=== PATIENT | male | born 1965 | race Caucasian/White ===

== ENCOUNTER 2024-07-22 12:14 | Inpatient (IN) | payer MEDICARE ==
[2024-07-22] MEDS: Metolazone 5 MG Tab PO ONE (13:05)
[2024-07-22 13:24] LABS: BASOPHILS ABSOLUTE AUTO 0.09 K/uL (0.02-0.10); BASOPHILS PERCENT AUTO 1.3 % (0.0-0.5); EOSINOPHILS ABSOLUTE AUTO 0.07 K/uL (0.04-0.40); HEMATOCRIT 40.5 % (40.0-54.0); HEMOGLOBIN 13.5 g/dL (13.0-18.0); LYMPHOCYTES ABSOLUTE AUTO 0.97 K/uL (1.50-4.00); LYMPHOCYTES PERCENT AUTO 13.9 % (20.0-40.0); MEAN CORPUSCULAR HEMOGLOBIN 27.3 pg (27.0-32.0); MEAN CORPUSCULAR HGB CONC 33.3 g/dL (31.0-35.0); MEAN CORPUSCULAR VOLUME 82 fL (76-96); MONOCYTES PERCENT AUTO 7.2 % (3.0-10.0); NEUTROPHILS ABSOLUTE AUTO 5.34 K/uL (2.00-7.50); NEUTROPHILS PERCENT AUTO 76.6 % (45.0-70.0); PLATELET COUNT,PLT 218 K/uL (150-400); RED BLOOD CELL COUNT 4.94 M/uL (4.50-6.50); RED CELL DISTRIBUTION WIDTH 15.8 % (11.0-16.0)
[2024-07-22 13:47] LABS: ALBUMIN 2.6 g/dL (3.4-5.0); BLOOD UREA NITROGEN,BUN 25 mg/dL (8-26); SODIUM,NA 134 mmol/L (136-145)
[2024-07-22 13:48] LABS: ALANINE AMINOTRANSFERASE,ALT 32 U/L (12-78); BILIRUBIN TOTAL 1.3 mg/dL (0.0-1.0)
[2024-07-22 14:12] LABS: A/G RATIO 0.6 (0.8-2.0); ALKALINE PHOSPHATASE 444 U/L (46-116); ANION GAP 9.6 mmol/L (5.0-15.0); ASPARTATE AMNIOTRANSFERASE,AST 25 U/L (15-37); BUN/CREATININE RATIO 22.7 (6-25); CALCIUM 8.9 mg/dL (8.5-10.1); CARBON DIOXIDE,CO2 30.4 mmol/L (21.0-32.0); CHLORIDE,CL 98 mmol/L (98-107); ESTIMATED GFR 77 mL/min (>60); GLUCOSE RANDOM 376 mg/dL (74-100); LIPASE 40 U/L (16-77); PROTEIN TOTAL,TP 7.3 g/dL (6.4-8.2)
[2024-07-22] MEDS ORDERED: Insulin Regular in 0.9 % NACL 100 ML IV SCH (14:13)
[2024-07-22 14:14] LABS: ETHANOL BLOOD MEDICAL < 3.0 mg/dL (<3.0)
[2024-07-22] MEDS: Sodium Chloride 0.9% 1,000 ML IV SCH ×2 (15:00→22:16)
[2024-07-22 16:45] LABS: INFLUENZA A NAA NEGATIVE (NEGATIVE); INFLUENZA B NAA NEGATIVE (NEGATIVE)
[2024-07-22 16:47] LABS: CORONAVIRUS COVID-19 NAA NEGATIVE (NEGATIVE)
[2024-07-22] MEDS: Glucagon,Human Recombinant 1 MG Vial IV ONE (18:53)
[2024-07-22] MEDS: 50% Dextrose in Water 50 ML Syringe IVPUSH ONE (18:56)
[2024-07-22] MEDS: Dextrose 5% in Water 1,000 ML IV SCH (19:30)
[2024-07-22] MEDS: Glucagon,Human Recombinant 1 MG Vial ONE ×2 (22:16)
[2024-07-23] MEDS ORDERED: 50% Dextrose in Water 50 ML Syringe IVPUSH PRN ×2 (00:37→08:45)
[2024-07-23] MEDS ORDERED: Glucagon,Human Recombinant 1 MG Vial IM PRN ×2 (00:37→08:45)
[2024-07-23] MEDS: Insulin Lispro 100 Unit/ML 3 ML KwikPen SUBCUT ONE ×2 (00:51→09:03)
[2024-07-23] MEDS: Sodium Chloride 0.9% 1,000 ML IV SCH (01:58)
[2024-07-23] MEDS: Metolazone 5 MG Tab PO ONE ×2 (04:06→10:31)
[2024-07-23] MEDS: Furosemide 40 MG Tab PO ONE (04:41)
[2024-07-23] MEDS: Ibuprofen 600 MG Tab PO PRN (05:22)
[2024-07-23] MEDS: metFORMIN 1,000 MG Tab PO SCH (08:13)
[2024-07-23] MEDS: Enoxaparin 40 MG/0.4 ML Syringe SUBCUT SCH (08:14)
[2024-07-23] MEDS: Spironolactone 25 MG Tab PO SCH (08:14)
[2024-07-23 10:14] LABS: BUN/CREATININE RATIO 23.8 (6-25); CALCIUM 8.5 mg/dL (8.5-10.1); CARBON DIOXIDE,CO2 31.7 mmol/L (21.0-32.0); CREATININE 1.22 mg/dL (0.70-1.30); EST CRCL DRUG DOSING (CG) 60.95 mL/min; TROPONIN I HIGH SENSITIVITY 16.3 pg/ml (<=60.4)
[2024-07-23 10:30] LABS: ANION GAP 9.3 mmol/L (5.0-15.0)
[2024-07-23] MEDS: glipiZIDE 5 MG Tab.ER PO SCH (10:30)
[2024-07-23] MEDS: Furosemide 40 MG/4 ML VIAL IVPUSH ONE (10:30)
[2024-07-23] MEDS: ceFAZolin 1 GM Vial IVPUSH SCH ×2 (11:02→16:19)
[2024-07-23] MEDS ORDERED: Metolazone 5 MG Tab PO SCH (13:00)
[2024-07-23] MEDS ORDERED: Furosemide 40 MG Tab PO SCH (14:00)
[2024-07-23 16:22] LABS: ANION GAP 8.1 mmol/L (5.0-15.0); BUN/CREATININE RATIO 23.9 (6-25); CALCIUM 8.4 mg/dL (8.5-10.1); CREATININE 1.42 mg/dL (0.70-1.30); EST CRCL DRUG DOSING (CG) 52.37 mL/min; POTASSIUM,K 4.1 mmol/L (3.5-5.1)
[2024-07-24] MEDS: Metolazone 5 MG Tab PO ONE (06:35)
[2024-07-24] MEDS: Furosemide 40 MG/4 ML VIAL IVPUSH ONE (07:09)
[2024-07-24] MEDS: Metolazone 5 MG Tab PO SCH (13:44)
[2024-07-24] MEDS: Furosemide 40 MG Tab PO SCH (14:32)
[2024-07-24] MEDS ORDERED: Glucagon,Human Recombinant 1 MG Vial IM PRN (17:27)
[2024-07-24] MEDS ORDERED: 50% Dextrose in Water 50 ML Syringe IVPUSH PRN (17:27)
[2024-07-24] MEDS: Insulin Regular, Human 100 Units/ML 3 ML Vial SUBCUT ONE (18:02)
[2024-07-24] MEDS: Lisinopril 5 MG Tab PO SCH (19:33)
[2024-07-25 09:51] LABS: ANION GAP 7.2 mmol/L (5.0-15.0); BUN/CREATININE RATIO 26.2 (6-25); CALCIUM 8.7 mg/dL (8.5-10.1); CREATININE 1.45 mg/dL (0.70-1.30); EST CRCL DRUG DOSING (CG) 51.28 mL/min; POTASSIUM,K 4.2 mmol/L (3.5-5.1)
[2024-07-25 13:46] LABS: INFLUENZA A NAA NEGATIVE (NEGATIVE); INFLUENZA B NAA NEGATIVE (NEGATIVE)
[2024-07-25 14:14] LABS: CORONAVIRUS COVID-19 NAA NEGATIVE (NEGATIVE)
[2024-07-26 08:30] LABS: BASOPHILS ABSOLUTE AUTO 0.03 K/uL (0.02-0.10); BASOPHILS PERCENT AUTO 0.5 % (0.0-0.5); EOSINOPHILS ABSOLUTE AUTO 0.14 K/uL (0.04-0.40); EOSINOPHILS PERCENT AUTO 2.3 % (1.0-5.0); HEMATOCRIT 37.5 % (40.0-54.0); HEMOGLOBIN 12.2 g/dL (13.0-18.0); LYMPHOCYTES ABSOLUTE AUTO 0.96 K/uL (1.50-4.00); MEAN CORPUSCULAR HEMOGLOBIN 27.2 pg (27.0-32.0); MEAN CORPUSCULAR HGB CONC 32.5 g/dL (31.0-35.0); MEAN CORPUSCULAR VOLUME 84 fL (76-96); MEAN PLATELET VOLUME 10.2 fL (6.0-10.0); NEUTROPHILS ABSOLUTE AUTO 4.27 K/uL (2.00-7.50); NEUTROPHILS PERCENT AUTO 71.2 % (45.0-70.0); PLATELET COUNT,PLT 167 K/uL (150-400); RED BLOOD CELL COUNT 4.48 M/uL (4.50-6.50); RED CELL DISTRIBUTION WIDTH 16.2 % (11.0-16.0)
[2024-07-26 09:01] LABS: A/G RATIO 0.5 (0.8-2.0); ALBUMIN 2.2 g/dL (3.4-5.0); ANION GAP 8.6 mmol/L (5.0-15.0); BILIRUBIN TOTAL 0.9 mg/dL (0.0-1.0); CARBON DIOXIDE,CO2 33.4 mmol/L (21.0-32.0); CREATININE 1.32 mg/dL (0.70-1.30); EST CRCL DRUG DOSING (CG) 56.34 mL/min; PROTEIN TOTAL,TP 6.5 g/dL (6.4-8.2)
[2024-07-26 11:14] LABS: CALCIUM 8.5 mg/dL (8.5-10.1)
[2024-07-27] MEDS: Carboxymethylcellulose Sodium 0.5% Ophth Soln 15 ML Bottle EYEBOTH PRN (04:31)
[2024-07-27] MEDS: Melatonin 3 MG Tab PO SCH (19:54)
[2024-07-28 08:59] LABS: BASOPHILS ABSOLUTE AUTO 0.05 K/uL (0.02-0.10); BASOPHILS PERCENT AUTO 0.9 % (0.0-0.5); EOSINOPHILS ABSOLUTE AUTO 0.13 K/uL (0.04-0.40); EOSINOPHILS PERCENT AUTO 2.3 % (1.0-5.0); HEMATOCRIT 38.3 % (40.0-54.0); HEMOGLOBIN 12.3 g/dL (13.0-18.0); LYMPHOCYTES ABSOLUTE AUTO 0.88 K/uL (1.50-4.00); LYMPHOCYTES PERCENT AUTO 15.5 % (20.0-40.0); MEAN CORPUSCULAR HEMOGLOBIN 26.9 pg (27.0-32.0); MEAN CORPUSCULAR HGB CONC 32.1 g/dL (31.0-35.0); MEAN CORPUSCULAR VOLUME 84 fL (76-96); MEAN PLATELET VOLUME 9.7 fL (6.0-10.0); MONOCYTES ABSOLUTE AUTO 0.67 K/uL (0.20-0.80); MONOCYTES PERCENT AUTO 11.8 % (3.0-10.0); NEUTROPHILS ABSOLUTE AUTO 3.93 K/uL (2.00-7.50); NEUTROPHILS PERCENT AUTO 69.5 % (45.0-70.0); PLATELET COUNT,PLT 170 K/uL (150-400); RED BLOOD CELL COUNT 4.58 M/uL (4.50-6.50); RED CELL DISTRIBUTION WIDTH 16.1 % (11.0-16.0); WHITE BLOOD CELL COUNT,WBC 5.7 K/uL (4.0-11.0)
[2024-07-28 09:21] LABS: A/G RATIO 0.5 (0.8-2.0); ALBUMIN 2.5 g/dL (3.4-5.0); ANION GAP 8.3 mmol/L (5.0-15.0); BILIRUBIN TOTAL 0.9 mg/dL (0.0-1.0); BUN/CREATININE RATIO 30.7 (6-25); CALCIUM 8.8 mg/dL (8.5-10.1); CARBON DIOXIDE,CO2 32.9 mmol/L (21.0-32.0); CREATININE 1.37 mg/dL (0.70-1.30); EST CRCL DRUG DOSING (CG) 54.28 mL/min; POTASSIUM,K 4.2 mmol/L (3.5-5.1); PROTEIN TOTAL,TP 7.2 g/dL (6.4-8.2)
[2024-07-28 10:43] LABS: HEMOGLOBIN A1C 12.1 % (< 5.7)
[2024-07-28] MEDS: Levothyroxine 25 MCG Tab PO SCH ×2 (16:33→18:52)
[2024-07-29] MEDS ORDERED: Levothyroxine 50 MCG Tab PO SCH (07:00)
[2024-07-29] MEDS: Lisinopril 5 MG Tab PO SCH (09:25)
[2024-07-29 09:27] VITALS: BP 154/93
[2024-07-29 09:43] VITALS: PULSE 76
== END 2024-07-29 12:45 | disposition home or self-care (01) | DRG 291 ==
LOC: LB.ED 12:14 → LB.MS 14:48 → UNDOADMIN 16:10 → LB.MS 16:10 → UNDODISIN 07-29 12:45
PROVIDERS: ADMIT Family Medicine; ATTEND Family Medicine
DX: I50.9 Heart failure, unspecified (principal); I11.0 Hypertensive heart disease with heart failure; L97.509 Non-pressure chronic ulcer of other part of unspecified foot with unspecified severity; I50.23 Acute on chronic systolic (congestive) heart failure; L97.919 Non-pressure chronic ulcer of unspecified part of right lower leg with unspecified severity; L97.929 Non-pressure chronic ulcer of unspecified part of left lower leg with unspecified severity; E11.621 Type 2 diabetes mellitus with foot ulcer; E11.65 Type 2 diabetes mellitus with hyperglycemia; I08.1 Rheumatic disorders of both mitral and tricuspid valves; E11.622 Type 2 diabetes mellitus with other skin ulcer; I25.10 Atherosclerotic heart disease of native coronary artery without angina pectoris; Z79.4 Long term (current) use of insulin
CPT/HCPCS: 0240U; 36415; 51702; 71045; 80048; 80053; 80307; 82947; 83036; 83605; 83690; 83880; 84443; 84484; 85025; 87493; 93005; 97110-GP; 97162-GP; 97530-GP; 99222; 99232; 99238; 99285; A9270-GY; J0690; J1610; J1650; J1815; J1815-GY; J1940; J7030; J7060

== ENCOUNTER 2025-01-12 15:51 | Emergency (ER) | payer MEDICARE | END 2025-01-12 17:36 | disposition home or self-care (01) | LOC: LB.ED 15:51 | DX: S09.90XA Unspecified injury of head, initial encounter (principal); M25.552 Pain in left hip; E11.9 Type 2 diabetes mellitus without complications; I50.9 Heart failure, unspecified; Z79.4 Long term (current) use of insulin; Z79.899 Other long term (current) drug therapy; W01.198A Fall on same level from slipping, tripping and stumbling with subsequent striking against other object, initial encounter; Y93.89 Activity, other specified | CPT/HCPCS: 70450; 73502-LT; 99284; A0425; A0428 ==

== ENCOUNTER 2025-07-12 13:32 | Emergency (ER) | payer MEDICARE ==
[2025-07-12 15:03] LABS: MEAN PLATELET VOLUME 9.3 fL (6.0-10.0); PLATELET COUNT,PLT 223.0 K/uL (150-400); RED BLOOD CELL COUNT 4.9 M/uL (4.50-6.50); RED CELL DISTRIBUTION WIDTH 15.9 % (11.0-16.0); WHITE BLOOD CELL COUNT,WBC 17.5 K/uL (4.0-11.0)
[2025-07-12 15:30] LABS: BLOOD UREA NITROGEN,BUN 26.0 mg/dL (8-26); CARBON DIOXIDE,CO2 26.6 mmol/L (21.0-32.0); CHLORIDE,CL 107.0 mmol/L (98-107); CREATININE 1.22 mg/dL (0.70-1.30); EST CRCL DRUG DOSING (CG) 60.2 mL/min; ESTIMATED GFR 68.0 mL/min (>60); GLUCOSE RANDOM 156.0 mg/dL (74-100); POTASSIUM,K 3.9 mmol/L (3.5-5.1); SODIUM,NA 144.0 mmol/L (136-145)
[2025-07-12] MEDS: Ketorolac 15 MG/ML SDV IM ONE (16:15)
[2025-07-12] MEDS: methylPREDNISolone Sodium Succinate 125 MG/2 ML SDV IVPUSH ONE (19:20)
[2025-07-12] MEDS: Ketorolac 15 MG/ML SDV ONE (19:23)
[2025-07-12 20:04] LABS: LACTIC ACID 0.9 mmol/L (0.4-2.0)
[2025-07-12] MEDS ORDERED: Sodium Chloride 0.9% 10 ML Syringe FLUSH PRN (20:18)
[2025-07-12] MEDS ORDERED: Iodixanol 652 MG/ML 100 ML Bottle IV PRN (21:32)
[2025-07-12] MEDS: Iodixanol 652 MG/ML 100 ML Bottle IV PRN (21:33)
[2025-07-12] MEDS: Sodium Chloride 0.9% 50 ML SDV FLUSH SCH (21:33)
[2025-07-12] MEDS: VANCOmycin 1.5 GM/300 ML 1.5 GM in Premix Bag 1 BAG IV ONE (21:43)
[2025-07-12] MEDS ORDERED: Sodium Chloride 0.9% 50 ML SDV FLUSH SCH (21:45)
== END 2025-07-12 21:48 ==
LOC: LB.ED 13:32
DX: J05.10 Acute epiglottitis without obstruction (principal); I11.0 Hypertensive heart disease with heart failure; I50.9 Heart failure, unspecified; E10.9 Type 1 diabetes mellitus without complications; E03.9 Hypothyroidism, unspecified; Z79.899 Other long term (current) drug therapy; Z79.84 Long term (current) use of oral hypoglycemic drugs; Z79.4 Long term (current) use of insulin
CPT/HCPCS: 36415; 70490; 70491; 80048; 83605; 85027; 87040; 87428; 87651; 96365; 96367; 96372; 96375; 99285; A9270; J0696; J3375; J7030; J1885; J2919

== ENCOUNTER 2025-07-12 22:28 | Emergency (ER) | payer MEDICARE ==
[2025-07-12 23:25] LABS: GLUCOSE,URINE >=1000 mg/dL (NEGATIVE); OCCULT BLOOD,URINE MODERATE (NEGATIVE)
[2025-07-12 23:29] LABS: APPEARANCE,URINE SLIGHTLY CLOUDY (CLEAR)
[2025-07-12 23:30] LABS: SQUAMOUS EPITHELIAL CELLS,UR RARE /HPF
[2025-07-13] MEDS: Ketorolac 15 MG/ML SDV IVPUSH PRN (06:16)
[2025-07-13 10:07] LABS: MEAN PLATELET VOLUME 9.2 fL (6.0-10.0); PLATELET COUNT,PLT 241.0 K/uL (150-400); RED BLOOD CELL COUNT 4.63 M/uL (4.50-6.50); RED CELL DISTRIBUTION WIDTH 16.1 % (11.0-16.0); WHITE BLOOD CELL COUNT,WBC 16.1 K/uL (4.0-11.0)
[2025-07-13 10:23] LABS: BLOOD UREA NITROGEN,BUN 37.0 mg/dL (8-26); CARBON DIOXIDE,CO2 21.3 mmol/L (21.0-32.0); CHLORIDE,CL 110.0 mmol/L (98-107); CREATININE 1.35 mg/dL (0.70-1.30); EST CRCL DRUG DOSING (CG) 54.4 mL/min; ESTIMATED GFR 60.0 mL/min (>60); GLUCOSE RANDOM 164.0 mg/dL (74-100); POTASSIUM,K 4.0 mmol/L (3.5-5.1); SODIUM,NA 148.0 mmol/L (136-145)
[2025-07-13 12:35] VITALS: BP 152/88; PULSE 84
[2025-07-13] MEDS ORDERED: VANCOmycin 1.25 GM/250 ML 1.25 GM in Premix Bag 1 BAG IV SCH (21:43)
== END 2025-07-13 11:08 ==
LOC: LB.ED 22:28
DX: J05.10 Acute epiglottitis without obstruction (principal); J02.9 Acute pharyngitis, unspecified; I11.0 Hypertensive heart disease with heart failure; I50.9 Heart failure, unspecified; E10.9 Type 1 diabetes mellitus without complications; E03.9 Hypothyroidism, unspecified; Z79.899 Other long term (current) drug therapy; Z79.84 Long term (current) use of oral hypoglycemic drugs; Z79.4 Long term (current) use of insulin
CPT/HCPCS: 36415; 70490; 70491; 80048; 80202; 81001; 82947; 83605; 85027; 87040; 87428-QW; 87651; 96361; 96365; 96367; 96372; 96374; 96375; 99285; 99285-25; A0425; A0428; A9270-GY; J0696; J1885; J2919; J3375; J7030